=== PATIENT | female | born 1960 | race Caucasian/White ===

== ENCOUNTER 2019-03-13 15:24 | Inpatient (IN) | payer OTHER ==
[2019-03-13 17:05] VITALS: BMI 32.5
--- NOTE | 2019-03-13 17:59 | HP ---
CIWA Score Nausea/Vomitin-No Nausea/No Vomiting Muscle Tremors: 3 Anxiety: 2 Agitation: 2 Paroxysmal Sweats: 2 Orientation: 1-Uncertain about Date Tacttile Disturbances: 0-None Auditory Disturbances: 0-None Visual Disturbances: 0-None Headache: 2-Mild CIWA-Ar Total Score: 12 - Admission Criteria OASAS Guidelines: Admission for Medically Managed Detox: Requires at least one of the followin. CIWA greater than 12 2. Seizures within the past 24 hours 3. Delirium tremens within the past 24 hours 4. Hallucinations within the past 24 hours 5. Acute intervention needed for co occurring medical disorder 6. Acute intervention needed for co occurring psychiatric disorder 7. Severe withdrawal that cannot be handled at a lower level of care (continued vomiting, continued diarrhea, abnormal vital signs) requiring intravenous medication and/or fluids 8. Admission ROS [facility] Chief Complaint: alcohol detox 58 yo with fibromyalgia, hypothyroidism, s/p R knee surgery with persistent R knee pain, taking advil and with depression- taking prozac and wellbutrin. [place] [facility] [place] states has been drinking for the last 5 years due to overwhelm stress- bipolar son and with ALS. Had been not using for about 25 years- was going to AA meetings. alcohol 1 pint of vodka and 2 beers, no h/o seizures, no DT's denies illcit drug use, DUR- klonopin 0.5mg TID 03/01/19 #90- pt states not taking RADHA-0.059 UTox- neg Allergies/Adverse Reactions: Allergies Allergy/AdvReac Type Severity Reaction Status Date / Time No Known Allergies Allergy Verified 03/13/19 16:55 - Ebola screening Have you traveled outside of the country in the last 21 days: No Have you had contact with anyone from an Ebola affected area: No - Review of Systems Constitutional: No Symptoms Reported EENT: reports: No Symptoms Reported Respiratory: reports: No Symptoms reported Cardiac: reports: No Symptoms Reported Musculoskeletal: reports: Joint Pain, Other (R knee) Integumentary: reports: No Symptoms Reported Neuro: reports: No Symptoms reported Endocrine: reports: No Symptoms Reported Hematology: reports: No Symptoms Reported Psychiatric: reports: No Sypmtoms Reported Other Systems: Reviewed and Negative Patient History - Patient Medical History Hx Anemia: No Hx Asthma: No Hx Chronic Obstructive Pulmonary Disease (COPD): No Hx Cardiac Disorders: No Hx Hypertension: No Hx Hypercholesterolemia: No HX Cerebrovascular Accident: No Hx Seizures: No Hx Diabetes: No Hx Gastrointestinal Disorders: No Hx Liver Disease: No Hx Genitourinary Disorders: No Hx Sexually Transmitted Disorders: No Hx Renal Disease (ESRD): No Hx Thyroid Disease: Yes (HYPOTHYROIDISM--ON SYNTHROID 112 MCG DAILY) Hx Human Immunodeficiency Virus (HIV): No (NEGATIVE HX) Hx Hepatitis C: Yes (TREATED ) Hx Depression: Yes Hx Suicide Attempt: No (DENIES) Hx Schizophrenia: No - Patient Surgical History Past Surgical History: Yes Other Surgical History: torn meniscus with surgery- R knee - PPD History Date: 02/19/14 - Reproductive History Last Menstrual Period: 02/23/09 - Smoking Cessation Smoking history: Current every day smoker Have you smoked in the past 12 months: Yes Aproximately how many cigarettes per day: 20 Hx Chewing Tobacco Use: No Initiated information on smoking cessation: Yes 'Breaking Loose' booklet given: 03/13/19 - Substance & Tx. History Substance Use Type: Alcohol - Substances abused Alcohol Substance route: Oral Frequency: Daily Amount used: 1 pint of vodka, 2-3 cans of beer Age of first use: 50 Date of last use: 03/13/19 Family Disease History - Family Disease History Family Disease History: Other: Mother (HTN) Admission Physical Exam BHS - Vital Signs Vital Signs: Vital Signs - 24 hr 03/13/19 03/13/19 16:59 17:20 Temperature 98.5 F 98.5 F Pulse Rate 89 89 Respiratory 20 20 Rate Blood Pressure 112/67 112/67 - Physical General Appearance: Yes: Within Normal Limits, No Apparent Distress HEENTM: Yes: Within Normal Limits Respiratory: Yes: Within Normal Limits Neck: Yes: Within Normal Limits Cardiology: Yes: Within Normal Limits, Regular Rhythm, Regular Rate Abdominal: Yes: Within Normal Limits Musculoskeletal: Yes: Within Normal Limits Extremities: Yes: Within Normal Limits Neurological: Yes: Within Normal Limits, mining helper II-XII NML intact, Fully Oriented, Alert, Motor Strength 5/5, Normal Mood/Affect Integumentary: Yes: Within Normal Limits, Normal Color Lymphatic: Yes: Within Normal Limits - Diagnostic (1) Alcohol use disorder Current Visit: Yes Status: Acute (2) H/O fibromyalgia Current Visit: No Status: Acute (3) Hypothyroidism Current Visit: No Status: Acute (4) Major depressive disorder, recurrent, moderate Current Visit: No Status: Acute Breathalyzer - Breathalyzer Breathalyzer: 0.059 Urine Drug Screen - Test Device Lot number: [id number] Expiration date: 11/08/20 - Control Is test valid?: Yes - Results Drug screen NEGATIVE: Yes Inpatient Rehab Admission - Rehab Decision to Admit Inpatient rehab admission?: No
[2019-03-13] MEDS ORDERED: MAGNESIUM HYDROX 2400MG/30ML ORAL SUSPENSION 30 ML CUP PO PRN (18:06)
[2019-03-13] MEDS ORDERED: METHOCARBAMOL 500 MG TABLET PO PRN (18:06)
[2019-03-13] MEDS ORDERED: ACETAMINOPHEN 325 MG TABLET (FP) PO PRN ×2 (18:06)
[2019-03-13] MEDS ORDERED: MAG HYDROX/AL HYDROX/SIMETH 30 ML UNIT-DOSE CUP PO PRN (18:06)
[2019-03-13] MEDS ORDERED: hydrOXYzine PAMOATE 25 MG CAPSULE (FP) PO PRN (18:06)
[2019-03-13] MEDS ORDERED: MENTHOL/PHENOL 1 EACH UD MM PRN (18:06)
[2019-03-13] MEDS ORDERED: NICOTINE 14 MG/24 HOURS TOPICAL PATCH TD PRN (18:06)
[2019-03-13] MEDS ORDERED: MAGNESIUM CITRATE 300 ML BOTTLE PO PRN (18:06)
[2019-03-13] MEDS ORDERED: BISMUTH SUBSALICYLATE 524 MG/30 ML UD PO PRN (18:06)
[2019-03-13] MEDS ORDERED: chlordiazePOXIDE HCL 25 MG CAPSULE PO ONE (18:09)
[2019-03-13] MEDS: THIAMINE HCL 100 MG TABLET (FP) PO SCH (21:18)
[2019-03-13] MEDS: chlordiazePOXIDE HCL 25 MG CAPSULE PO SCH (21:18)
[2019-03-13] MEDS: IBUPROFEN 400 MG TABLET (FP) PO PRN (22:39)
[2019-03-13] MEDS: chlordiazePOXIDE HCL 10 MG CAPSULE PO PRN (22:40)
[2019-03-14] MEDS: chlordiazePOXIDE HCL 25 MG CAPSULE PO SCH ×3 (06:33→21:50)
[2019-03-14] MEDS: FLUoxetine HCL 20 MG CAPSULE (FP) PO SCH (10:26)
[2019-03-14] MEDS: LEVOTHYROXINE NA 112 MCG TABLET (FP) PO SCH (10:26)
[2019-03-14] MEDS: PRENATAL VITAMINS W/ FOLIC ACID TABLET (FP) PO SCH (10:26)
--- NOTE | 2019-03-14 13:09 | PN ---
S CIWA - CIWA Score Nausea/Vomitin-No Nausea/No Vomiting Muscle Tremors: 3 Anxiety: 2 Agitation: 2 Paroxysmal Sweats: 1-Minimal Palms Moist Orientation: 0-Oriented Tacttile Disturbances: 0-None Auditory Disturbances: 0-None Visual Disturbances: 0-None Headache: 1-Very Mild CIWA-Ar Total Score: 9 BHS Progress Note (SOAP) Subjective: doing well with librium detox regimen less tremor sleep better at night social with peers in day room Objective: 03/14/19 13:08 Vital Signs Temperature 97.0 F L 03/14/19 09:50 Pulse Rate 85 03/14/19 09:50 Respiratory Rate 18 03/14/19 09:50 Blood Pressure 108/67 03/14/19 09:50 O2 Sat by Pulse Oximetry (%) 03/14/19 13:08 lab pending Assessment: 03/14/19 13:08 alcohol withdrawal sx Plan: continue alcohol detox
[2019-03-14 13:16] LABS: HEMATOCRIT 40.6 % (32.4-45.2); HEMOGLOBIN 13.7 GM/dL (10.7-15.3); MCH 32.8 pg (25.7-33.7); MCHC 33.7 g/dl (32.0-36.0); MEAN CELL VOLUME 97.4 fl (80-96); MEAN PLT VOLUME 8.6 fl (7.5-11.1); RBC 4.17 M/mm3 (3.60-5.2); RDW 15.3 % (11.6-15.6); WHITE BLOOD COUNT 5.3 K/mm3 (4.0-10.0)
[2019-03-14 13:26] LABS: ALBUMIN 3.5 g/dl (3.4-5.0); BILIRUBIN,TOTAL 1.1 mg/dL (0.2-1); BLOOD UREA NITROGEN 16.1 mg/dL (7-18); CALCIUM 8.8 mg/dL (8.5-10.1); CREATININE 0.8 mg/dL (0.55-1.3); POTASSIUM 3.9 mmol/L (3.5-5.1); TOT PROT 6.4 g/dl (6.4-8.2)
[2019-03-14 14:13] LABS: PLATELET COUNT 180 K/MM3 (134-434)
[2019-03-14] MEDS: IBUPROFEN 400 MG TABLET (FP) PO PRN (18:59)
[2019-03-14] MEDS: THIAMINE HCL 100 MG TABLET (FP) PO SCH (21:50)
[2019-03-14] MEDS: MELATONIN 5 MG TABLETS PO PRN (21:51)
[2019-03-15] MEDS: chlordiazePOXIDE 5 MG CAPSULE PO SCH ×2 (05:45→12:39)
[2019-03-15] MEDS: LEVOTHYROXINE NA 112 MCG TABLET (FP) PO SCH (06:28)
[2019-03-15] MEDS: FLUoxetine HCL 20 MG CAPSULE (FP) PO SCH (09:50)
[2019-03-15] MEDS: PRENATAL VITAMINS W/ FOLIC ACID TABLET (FP) PO SCH (09:51)
[2019-03-15] MEDS: IBUPROFEN 400 MG TABLET (FP) PO PRN (13:18)
[2019-03-15] MEDS: chlordiazePOXIDE HCL 10 MG CAPSULE PO PRN (15:27)
--- NOTE | 2019-03-15 16:57 | PN ---
S CIWA - CIWA Score Nausea/Vomitin (Diarrhea (Mild).) Muscle Tremors: None Anxiety: 2 Agitation: 1-Slight > Activity Paroxysmal Sweats: No Perspiration Orientation: 0-Oriented Tacttile Disturbances: 1-Very Mild Itch/Numbness Auditory Disturbances: 0-None Visual Disturbances: 0-None Headache: 0-None Present CIWA-Ar Total Score: 6 BHS Progress Note (SOAP) Subjective: Diarrhea (Mild). Objective: PATIENT A & O X 3, OBSERVED AMBULATING ON UNIT UNASSISTED. IN NO ACUTE DISTRESS. 03/15/19 16:54 Vital Signs Temperature 97.4 F L 03/15/19 13:42 Pulse Rate 83 03/15/19 13:42 Respiratory Rate 17 03/15/19 13:42 Blood Pressure 110/61 03/15/19 13:42 O2 Sat by Pulse Oximetry (%) Laboratory Tests 03/13/19 03/14/19 03/14/19 17:21 08:00 08:00 WBC 5.3 RBC 4.17 Hgb 13.7 Hct 40.6 MCV 97.4 H MCH 32.8 MCHC 33.7 RDW 15.3 D Plt Count 180 MPV 8.6 Sodium 140 Potassium 3.9 Chloride 104 Carbon Dioxide 31 Anion Gap 6 L BUN 16.1 Creatinine 0.8 Est GFR (CKD-EPI)AfAm 94.19 Est GFR (CKD-EPI)NonAf 81.27 Random Glucose 113 H Calcium 8.8 Total Bilirubin 1.1 H AST 30 ALT 32 Alkaline Phosphatase 73 Total Protein 6.4 Albumin 3.5 POC Urine HCG, Qual Negative RPR Titer 03/14/19 08:00 WBC RBC Hgb Hct MCV MCH MCHC RDW Plt Count MPV Sodium Potassium Chloride Carbon Dioxide Anion Gap BUN Creatinine Est GFR (CKD-EPI)AfAm Est GFR (CKD-EPI)NonAf Random Glucose Calcium Total Bilirubin AST ALT Alkaline Phosphatase Total Protein Albumin POC Urine HCG, Qual RPR Titer Nonreactive LABS NOTED. TB / QFT RESULTS PENDING. 03/15/19 16:55 Assessment: 03/15/19 16:56 WITHDRAWAL SYMPTOMS. Plan: CONTINUE DETOX. INCREASE DAILY PO WATER INTAKE. PRN PEPTO-BISMOL PO FOR DIARRHEA. PATIENT REPORTS THAT SHE IS TOLERATING CURRENT WITHDRAWAL / DETOX SYMPTOMS WELL. AT PATIENT'S REQUEST, CURRENT DETOX MEDICATION REGIMEN (LIBRIUM) MODIFIED SO THAT PATIENT MAY BE DISCHARGED TOMORROW, 03/16/2019.
[2019-03-15] MEDS: chlordiazePOXIDE HCL 10 MG CAPSULE PO SCH ×2 (17:29→22:00)
[2019-03-15] MEDS: THIAMINE HCL 100 MG TABLET (FP) PO SCH (21:59)
[2019-03-16] MEDS ORDERED: chlordiazePOXIDE HCL 10 MG CAPSULE PO PRN
[2019-03-16] MEDS: MELATONIN 5 MG TABLETS PO PRN (00:27)
[2019-03-16] MEDS ORDERED: chlordiazePOXIDE HCL 10 MG CAPSULE PO SCH (05:00)
[2019-03-16] MEDS: LEVOTHYROXINE NA 112 MCG TABLET (FP) PO SCH (06:14)
[2019-03-16 09:45] VITALS: BP 119/72; PULSE 78; TEMP 97
--- NOTE | 2019-03-16 15:43 | DS ---
[facility] Detox Discharge Summary Admission Date: 03/13/19 Discharge Date: 03/16/19 - History Present History: Alcohol Dependence Additional Comments: PATIENT DENIES CURRENT WITHDRAWAL / DETOX SYMPTOMS AND REPORTS THAT SHE FEELS WELL OVERALL AT TIME OF DISCHARGE FROM DETOX UNIT. PATIENT RETURNING HOME AND WILL ATTEND LOCAL MEETINGS FOR AFTERCARE. PATIENT WAS DISCHARGED FROM DETOX UNIT IN STABLE MEDICAL CONDITION. Pertinent Past History: Hypothyroidism, Hep C, Depression, History Of Fibrolmyalgia, History Of Major Depressive Disorder, History Of Surgery To Right Knee With Persistent Lasting Knee Pain. - Physical Exam Results Vital Signs: Vital Signs Temperature 97.0 F L 03/16/19 09:00 Pulse Rate 78 03/16/19 09:00 Respiratory Rate 18 03/16/19 09:00 Blood Pressure 119/72 03/16/19 09:00 O2 Sat by Pulse Oximetry (%) Pertinent Admission Physical Exam Findings: WITHDRAWAL SYMPTOMS. Laboratory Tests 03/13/19 03/14/19 03/14/19 17:21 08:00 08:00 WBC 5.3 RBC 4.17 Hgb 13.7 Hct 40.6 MCV 97.4 H MCH 32.8 MCHC 33.7 RDW 15.3 D Plt Count 180 MPV 8.6 Sodium 140 Potassium 3.9 Chloride 104 Carbon Dioxide 31 Anion Gap 6 L BUN 16.1 Creatinine 0.8 Est GFR (CKD-EPI)AfAm 94.19 Est GFR (CKD-EPI)NonAf 81.27 Random Glucose 113 H Calcium 8.8 Total Bilirubin 1.1 H AST 30 ALT 32 Alkaline Phosphatase 73 Total Protein 6.4 Albumin 3.5 POC Urine HCG, Qual Negative RPR Titer 03/14/19 08:00 WBC RBC Hgb Hct MCV MCH MCHC RDW Plt Count MPV Sodium Potassium Chloride Carbon Dioxide Anion Gap BUN Creatinine Est GFR (CKD-EPI)AfAm Est GFR (CKD-EPI)NonAf Random Glucose Calcium Total Bilirubin AST ALT Alkaline Phosphatase Total Protein Albumin POC Urine HCG, Qual RPR Titer Nonreactive LABS NOTED. - Treatment Hospital Course: Detox Protocol Followed, Detoxed Safely, Responded well, Discharged Condition Good Patient has Accepted a Rehab Referral to: PT. WILL RETURN TO PREVIOUS OUTPATIENT SUPPORT GROUP MEETINGS. - Medication Discharge Medications: Ambulatory Orders Aspirin [ASA -] 81 mg PO DAILY #30 tab.chew 02/21/14 Levothyroxine [Synthroid -] 112 mcg PO DAILY@0700 #30 tablet 02/21/14 Fluoxetine HCl [Prozac -] 20 mg PO DAILY 03/13/19 - Diagnosis (1) Alcohol use disorder Status: Acute (2) H/O fibromyalgia Status: Chronic (3) Hypothyroidism Status: Chronic Qualifiers: Hypothyroidism type: unspecified Qualified Code(s): E03.9 - Hypothyroidism , unspecified (4) Major depressive disorder, recurrent, moderate Status: Chronic - AMA Did Patient Leave Against Medical Advice: No
[2019-03-17] MEDS ORDERED: chlordiazePOXIDE HCL 10 MG CAPSULE PO ONE (05:00)
== END 2019-03-16 09:08 | disposition home or self-care (01) | DRG 897 ==
LOC: YASAS 15:24 → Y3N 18:26
PROVIDERS: ADMIT Surgery; ATTEND Surgery
PROC: HZ2ZZZZ Detoxification Services for Substance Abuse Treatment (ICD-10-PCS; principal; 2019-03-13)
DX: F10.230 Alcohol dependence with withdrawal, uncomplicated (principal); F33.1 Major depressive disorder, recurrent, moderate; E03.9 Hypothyroidism, unspecified; B18.2 Chronic viral hepatitis C; M79.7 Fibromyalgia; M25.561 Pain in right knee; G89.29 Other chronic pain; Z98.890 Other specified postprocedural states
CPT/HCPCS: 36415; 80053; 81025; 85027; 86480; 86593

== ENCOUNTER 2020-03-03 12:45 | Inpatient (IN) | payer OTHER ==
[2020-03-03] MEDS ORDERED: IBUPROFEN 400 MG TABLET (FP) PO PRN (13:39)
[2020-03-03] MEDS ORDERED: MENTHOL/PHENOL 1 EACH UD MM PRN (13:39)
[2020-03-03] MEDS ORDERED: NICOTINE POLACRILEX 2 MG GUM BUC PRN (13:39)
[2020-03-03] MEDS ORDERED: MAGNESIUM HYDROX 2400MG/30ML ORAL SUSPENSION 30 ML CUP PO PRN (13:39)
[2020-03-03] MEDS ORDERED: guaiFENesin 200 MG/10 ML 10 ML UNIT-DOSE CUPS PO PRN (13:39)
[2020-03-03] MEDS ORDERED: MAG HYDROX/AL HYDROX/SIMETH 30 ML UNIT-DOSE CUP PO PRN (13:39)
[2020-03-03] MEDS ORDERED: P-EPHED 60MG/TRIPROLIDI 2.5MG TABLET PO PRN (13:39)
[2020-03-03] MEDS ORDERED: LOPERAMIDE HCL 2 MG CAPSULE PO PRN (13:39)
[2020-03-03] MEDS ORDERED: ACETAMINOPHEN 325 MG TABLET (FP) PO PRN (13:39)
[2020-03-03] MEDS ORDERED: MAGNESIUM CITRATE 300 ML BOTTLE PO PRN (13:39)
[2020-03-03] MEDS ORDERED: BENZOCAINE 20 % GEL TUBE MM PRN (13:40)
--- NOTE | 2020-03-03 13:47 | HP ---
[facility] Rehab Assess/Revision - Admission History Ad[facility]hab [facility] - Findings Detox History & Physical reviewed: Yes Concur with findings: Yes Comments/Additional Findings: P/E;. General: no apparent distress. Neuro: No cognitive deficits. HEENTM:PERRLA, normocephalic, dental caries. MSK: full weight bearing. Resp: no accessory muscle use, unlabored. Inpatient Rehab Admission - Rehab Decision to Admit Inpatient rehab admission?: Yes - Initial Determination Are CD services needed?: Yes Free of communicable disease: Yes Not in need of hospitalization: Yes - Rehab Admission Criteria Previous failed treatment: Yes Poor recovery environment: Yes Comorbidities: Yes Lacks judgement: Yes Patient is meeting Inpatient Rehab admission criteria:: Yes
--- NOTE | 2020-03-03 14:27 | CONSULT ---
[facility] Psychiatric Consult - Data Date of interview: 03/03/20 Admission source: 3N Identifying data: Ms Moran is a 59 years old female, mother of a 25 years old son, unemployed receiving SSD, domiciled seeking detox treatment for alcohol Substance Abuse History: Reports history of alcohol use. Refer to addiction conselor's summary for further information Medical History: Significant for history of GERD, dyslipidemia, fibromyalgia, hypothyroidism, history of treatment for hepatits C and arthroscopic surgery for torn meniscus right knee. Smokes cigarettes 1 ppd Psychiatric History: Patient previously seen by commercial insurance underwriter recently on 02/28/20 while in detox. Medications(Wellbutribn XL 450 mg/day & Prozac 20 mg/day) were continued. Continue same medications
[2020-03-03] MEDS: hydrOXYzine PAMOATE 25 MG CAPSULE (FP) PO PRN (21:33)
[2020-03-03] MEDS: MELATONIN 5 MG TABLETS PO SCH (21:33)
[2020-03-03] MEDS: THIAMINE HCL 100 MG TABLET (FP) PO SCH (21:33)
[2020-03-04] MEDS: LEVOTHYROXINE NA 100 MCG TABLET (FP) PO SCH (06:35)
[2020-03-04] MEDS: ASPIRIN 81 MG CHEWABLE TABLETS PO SCH (10:22)
[2020-03-04] MEDS: FLUoxetine HCL 20 MG CAPSULE PO SCH (10:22)
[2020-03-04] MEDS: hydrOXYzine PAMOATE 25 MG CAPSULE (FP) PO PRN ×2 (10:23→21:47)
[2020-03-04] MEDS: LIDOCAINE 5% TOPICAL PATCH TP SCH (10:23)
[2020-03-04] MEDS: ATORVASTATIN CA 10 MG TABLET (FP) PO SCH (10:23)
[2020-03-04] MEDS: NICOTINE 21 MG/24 HOURS TOPICAL PATCH TD SCH (10:24)
[2020-03-04] MEDS: PRENATAL VITAMINS W/ FOLIC ACID TABLET (FP) PO SCH (10:24)
[2020-03-04] MEDS: MELATONIN 5 MG TABLETS PO SCH (21:47)
[2020-03-04] MEDS: THIAMINE HCL 100 MG TABLET (FP) PO SCH (21:47)
[2020-03-04] MEDS: LIDOCAINE PATCH REMOVAL MC SCH (21:47)
[2020-03-05] MEDS: LEVOTHYROXINE NA 100 MCG TABLET (FP) PO SCH (06:39)
[2020-03-05] MEDS: PRENATAL VITAMINS W/ FOLIC ACID TABLET (FP) PO SCH (10:10)
[2020-03-05] MEDS: FLUoxetine HCL 20 MG CAPSULE PO SCH (10:10)
[2020-03-05] MEDS: LIDOCAINE 5% TOPICAL PATCH TP SCH (10:10)
[2020-03-05] MEDS: ASPIRIN 81 MG CHEWABLE TABLETS PO SCH (10:10)
[2020-03-05] MEDS: ATORVASTATIN CA 10 MG TABLET (FP) PO SCH (10:11)
[2020-03-05] MEDS ORDERED: PT OWN MED DRAWER 7, Y5N ONE (10:15)
[2020-03-05] MEDS: NICOTINE 21 MG/24 HOURS TOPICAL PATCH TD SCH (10:21)
[2020-03-05] MEDS: THIAMINE HCL 100 MG TABLET (FP) PO SCH (21:27)
[2020-03-05] MEDS: hydrOXYzine PAMOATE 25 MG CAPSULE (FP) PO PRN (21:27)
[2020-03-05] MEDS: MELATONIN 5 MG TABLETS PO SCH (21:27)
[2020-03-05] MEDS: LIDOCAINE PATCH REMOVAL MC SCH (21:28)
[2020-03-06] MEDS: LEVOTHYROXINE NA 100 MCG TABLET (FP) PO SCH (06:51)
[2020-03-06] MEDS: FLUoxetine HCL 20 MG CAPSULE PO SCH (10:28)
[2020-03-06] MEDS: ASPIRIN 81 MG CHEWABLE TABLETS PO SCH (10:28)
[2020-03-06] MEDS: ATORVASTATIN CA 10 MG TABLET (FP) PO SCH (10:28)
[2020-03-06] MEDS: PRENATAL VITAMINS W/ FOLIC ACID TABLET (FP) PO SCH (10:28)
[2020-03-06] MEDS: NICOTINE 21 MG/24 HOURS TOPICAL PATCH TD SCH (10:29)
[2020-03-06] MEDS: LIDOCAINE 5% TOPICAL PATCH TP SCH (12:58)
[2020-03-06] MEDS: hydrOXYzine PAMOATE 25 MG CAPSULE (FP) PO PRN (21:36)
[2020-03-06] MEDS: THIAMINE HCL 100 MG TABLET (FP) PO SCH (21:36)
[2020-03-06] MEDS: LIDOCAINE PATCH REMOVAL MC SCH (21:36)
[2020-03-06] MEDS: MELATONIN 5 MG TABLETS PO SCH (21:36)
[2020-03-07] MEDS: LEVOTHYROXINE NA 100 MCG TABLET (FP) PO SCH (06:26)
[2020-03-07] MEDS: LIDOCAINE 5% TOPICAL PATCH TP SCH (10:10)
[2020-03-07] MEDS: ASPIRIN 81 MG CHEWABLE TABLETS PO SCH (10:11)
[2020-03-07] MEDS: FLUoxetine HCL 20 MG CAPSULE PO SCH (10:11)
[2020-03-07] MEDS: ATORVASTATIN CA 10 MG TABLET (FP) PO SCH (10:11)
[2020-03-07] MEDS: NICOTINE 21 MG/24 HOURS TOPICAL PATCH TD SCH (10:11)
[2020-03-07] MEDS: PRENATAL VITAMINS W/ FOLIC ACID TABLET (FP) PO SCH (10:11)
[2020-03-07] MEDS: MELATONIN 5 MG TABLETS PO SCH (21:22)
[2020-03-07] MEDS: THIAMINE HCL 100 MG TABLET (FP) PO SCH (21:22)
[2020-03-07] MEDS: hydrOXYzine PAMOATE 25 MG CAPSULE (FP) PO PRN (21:22)
[2020-03-07] MEDS: LIDOCAINE PATCH REMOVAL MC SCH (21:23)
[2020-03-07] MEDS ORDERED: METHYL SALICYLATE/MENTHOL OINT 30 GM TUBE TP PRN (22:00)
[2020-03-08] MEDS: FLUoxetine HCL 20 MG CAPSULE PO SCH (09:39)
[2020-03-08] MEDS: ASPIRIN 81 MG CHEWABLE TABLETS PO SCH (09:39)
[2020-03-08] MEDS: PRENATAL VITAMINS W/ FOLIC ACID TABLET (FP) PO SCH (09:39)
[2020-03-08] MEDS: ATORVASTATIN CA 10 MG TABLET (FP) PO SCH (09:39)
[2020-03-08] MEDS: LIDOCAINE 5% TOPICAL PATCH TP SCH (09:39)
[2020-03-08] MEDS: LEVOTHYROXINE NA 100 MCG TABLET (FP) PO SCH (09:40)
[2020-03-08] MEDS: NICOTINE 21 MG/24 HOURS TOPICAL PATCH TD SCH (09:40)
[2020-03-08] MEDS: MELATONIN 5 MG TABLETS PO SCH (21:46)
[2020-03-08] MEDS: hydrOXYzine PAMOATE 25 MG CAPSULE (FP) PO PRN (21:46)
[2020-03-08] MEDS: THIAMINE HCL 100 MG TABLET (FP) PO SCH (21:46)
[2020-03-08] MEDS: LIDOCAINE PATCH REMOVAL MC SCH (21:46)
[2020-03-09] MEDS: ASPIRIN 81 MG CHEWABLE TABLETS PO SCH (11:02)
[2020-03-09] MEDS: FLUoxetine HCL 20 MG CAPSULE PO SCH (11:02)
[2020-03-09] MEDS: NICOTINE 21 MG/24 HOURS TOPICAL PATCH TD SCH (11:02)
[2020-03-09] MEDS: LEVOTHYROXINE NA 100 MCG TABLET (FP) PO SCH (11:03)
[2020-03-09] MEDS: PRENATAL VITAMINS W/ FOLIC ACID TABLET (FP) PO SCH (11:03)
[2020-03-09] MEDS: ATORVASTATIN CA 10 MG TABLET (FP) PO SCH (11:03)
[2020-03-09] MEDS ORDERED: PT OWN MED DRAWER 7, Y5N ONE (11:07)
[2020-03-09] MEDS: LIDOCAINE 5% TOPICAL PATCH TP SCH (11:08)
--- NOTE | 2020-03-09 13:49 | PN ---
[facility] Progress Note Note: Patient c/o right knee discomfort, radiating down leg. She states mild relief with lidocaine patch and requested 2 patches to help with pain relief. Vital Signs Temperature 97.3 F L 03/09/20 07:06 Pulse Rate 79 03/09/20 07:06 Respiratory Rate 18 03/09/20 07:06 Blood Pressure 116/60 03/09/20 07:06 O2 Sat by Pulse Oximetry (%) 97 03/09/20 07:06 PE alert and oriented x 3 skin warm and dry ext full rom, amb ad corey no visible tremors, swelling A/P: right knee discomfort-chronic due to old torn meniscus will increase lidocaine patch to 2 HS monitor clinically
[2020-03-09] MEDS ORDERED: HYDROCORTISONE 1% TOPICAL CREAM 30 GM TUBE TP PRN (15:44)
[2020-03-09] MEDS: LIDOCAINE PATCH REMOVAL MC SCH (21:34)
[2020-03-09] MEDS: MELATONIN 5 MG TABLETS PO SCH (21:34)
[2020-03-09] MEDS: THIAMINE HCL 100 MG TABLET (FP) PO SCH (21:35)
[2020-03-09] MEDS: hydrOXYzine PAMOATE 25 MG CAPSULE (FP) PO PRN (21:36)
[2020-03-10] MEDS: ATORVASTATIN CA 10 MG TABLET (FP) PO SCH (10:19)
[2020-03-10] MEDS: ASPIRIN 81 MG CHEWABLE TABLETS PO SCH (10:19)
[2020-03-10] MEDS: LIDOCAINE 5% TOPICAL PATCH TP SCH (10:19)
[2020-03-10] MEDS: NICOTINE 21 MG/24 HOURS TOPICAL PATCH TD SCH (10:19)
[2020-03-10] MEDS: FLUoxetine HCL 20 MG CAPSULE PO SCH (10:19)
[2020-03-10] MEDS: PRENATAL VITAMINS W/ FOLIC ACID TABLET (FP) PO SCH (10:19)
[2020-03-10] MEDS: LEVOTHYROXINE NA 100 MCG TABLET (FP) PO SCH (10:20)
[2020-03-10] MEDS ORDERED: PT OWN MED DRAWER 7, Y5N ONE (10:21)
[2020-03-10] MEDS: HYDROCORTISONE 1% TOPICAL CREAM 30 GM TUBE TP PRN (16:59)
[2020-03-10] MEDS: THIAMINE HCL 100 MG TABLET (FP) PO SCH (21:33)
[2020-03-10] MEDS: hydrOXYzine PAMOATE 25 MG CAPSULE (FP) PO PRN (21:33)
[2020-03-10] MEDS: MELATONIN 5 MG TABLETS PO SCH (21:33)
[2020-03-10] MEDS: LIDOCAINE PATCH REMOVAL MC SCH (21:33)
[2020-03-11] MEDS: FLUoxetine HCL 20 MG CAPSULE PO SCH (10:48)
[2020-03-11] MEDS: LEVOTHYROXINE NA 100 MCG TABLET (FP) PO SCH (10:48)
[2020-03-11] MEDS: ATORVASTATIN CA 10 MG TABLET (FP) PO SCH (10:48)
[2020-03-11] MEDS: ASPIRIN 81 MG CHEWABLE TABLETS PO SCH (10:48)
[2020-03-11] MEDS: LIDOCAINE 5% TOPICAL PATCH TP SCH (10:48)
[2020-03-11] MEDS: PRENATAL VITAMINS W/ FOLIC ACID TABLET (FP) PO SCH (10:48)
[2020-03-11] MEDS: NICOTINE 21 MG/24 HOURS TOPICAL PATCH TD SCH (10:48)
[2020-03-11] MEDS: HYDROCORTISONE 1% TOPICAL CREAM 30 GM TUBE TP PRN (13:39)
[2020-03-11] MEDS ORDERED: PT OWN MED DRAWER 7, Y5N ONE (19:02)
[2020-03-11] MEDS: hydrOXYzine PAMOATE 25 MG CAPSULE (FP) PO PRN (21:31)
[2020-03-11] MEDS: MELATONIN 5 MG TABLETS PO SCH (21:31)
[2020-03-11] MEDS: THIAMINE HCL 100 MG TABLET (FP) PO SCH (21:31)
[2020-03-11] MEDS: LIDOCAINE PATCH REMOVAL MC SCH (21:32)
[2020-03-12 07:04] VITALS: TEMP 97.3
[2020-03-12] MEDS: PRENATAL VITAMINS W/ FOLIC ACID TABLET (FP) PO SCH (10:00)
[2020-03-12] MEDS: LIDOCAINE 5% TOPICAL PATCH TP SCH (10:01)
[2020-03-12] MEDS: ATORVASTATIN CA 10 MG TABLET (FP) PO SCH (10:01)
[2020-03-12] MEDS: FLUoxetine HCL 20 MG CAPSULE PO SCH (10:01)
[2020-03-12] MEDS: ASPIRIN 81 MG CHEWABLE TABLETS PO SCH (10:01)
[2020-03-12] MEDS: hydrOXYzine PAMOATE 25 MG CAPSULE (FP) PO PRN ×2 (10:01→21:32)
[2020-03-12] MEDS: LEVOTHYROXINE NA 100 MCG TABLET (FP) PO SCH (10:02)
[2020-03-12] MEDS: HYDROCORTISONE 1% TOPICAL CREAM 30 GM TUBE TP PRN (10:02)
[2020-03-12] MEDS: NICOTINE 21 MG/24 HOURS TOPICAL PATCH TD SCH (10:02)
[2020-03-12] MEDS: LIDOCAINE PATCH REMOVAL MC SCH (21:32)
[2020-03-12] MEDS: MELATONIN 5 MG TABLETS PO SCH (21:32)
[2020-03-12] MEDS: THIAMINE HCL 100 MG TABLET (FP) PO SCH (21:32)
--- NOTE | 2020-03-13 07:16 | PN ---
S Progress Note Note: Patient is scheduled for discharge today. Scripts for 30 days supply of medications(Prozac 20 mg/day, Wellbutrin XL 450 mg/day) are electronically transmitted to [facility] [address] [place] [address]
[2020-03-13 07:19] VITALS: BP 108/69; PULSE 66
[2020-03-13] MEDS ORDERED: PT OWN MED DRAWER 7, Y5N ONE (08:38)
--- NOTE | 2020-03-13 08:53 | DS ---
[facility] Rehab Discharge Summary - [facility] Rehab Discharge Summary Admission Date: 03/03/20 Discharge Date: 03/13/20 - History Present History: Alcohol dependence, Sedative dependence Pertinent Past History: GERD HLD Hypothyroidism Fibromyalgia MDD - Discharge Physical Exam Vital Signs: Vital Signs Temperature 97.3 F L 03/13/20 06:12 Pulse Rate 66 03/13/20 06:12 Respiratory Rate 16 03/13/20 06:12 Blood Pressure 108/69 03/13/20 06:12 O2 Sat by Pulse Oximetry (%) 96 03/13/20 06:12 Alert o x 3 nad oob ambulating with steady gait cardiac:s1 s2,rrr lungs:ctab abdomen:soft,+bs,nt,nd extremities:no edema,skin intact,mild varicosty of veins-lower extremities. - Treatment Discharge Condition: Discharge condition good Hospital Course: CD aftercare referral accepted Rehabilitated safely Responded well - Medication Discharge Medications: Ambulatory Orders Aspirin [ASA -] 81 mg PO DAILY #30 tab.chew 02/21/14 Atorvastatin Calcium [Lipitor] 10 mg PO DAILY 02/27/20 Benzocaine Oral Gel [Anbesol -] 1 applic MM Q2H PRN 02/27/20 Bupropion HCl [Wellbutrin -] 450 mg PO DAILY 02/27/20 Clonazepam [Klonopin] 1 mg PO TID PRN 02/27/20 Levothyroxine [Synthroid -] 100 mcg PO DAILY@0700 02/27/20 Bupropion HCl [Wellbutrin Xl -] 450 mg PO DAILY #90 tab.sr.24h 03/13/20 Fluoxetine HCl [Prozac -] 20 mg PO DAILY #30 cap 03/13/20 - Medication-Assisted Treatment (MAT) Medication-Assisted Treatment (MAT): No - Discharge Instructions Diet, activity, other medical instructions: Diet:EMILIE Activity: OOB ad corey Other medical instructions:Follow up with PCP Dr. Vital @ [facility]. Follow up with CD aftercare at [facility] or [facility] as recommended. - Diagnosis (1) Alcohol use disorder Status: Chronic (2) GERD (gastroesophageal reflux disease) Status: Chronic Qualifiers: Esophagitis presence: esophagitis presence not specified Qualified Code(s): K21.9 - Gastro-esophageal reflux disease without esophagitis (3) Hyperlipidemia Status: Chronic Qualifiers: Hyperlipidemia type: unspecified Qualified Code(s): E78.5 - Hyperlipidemia, unspecified (4) Sedative dependence with current use Status: Chronic (5) H/O fibromyalgia Status: Chronic (6) Hypothyroidism Status: Chronic Qualifiers: Hypothyroidism type: unspecified Qualified Code(s): E03.9 - Hypothyroidism, unspecified (7) Nicotine dependence Status: Chronic Qualifiers: Nicotine product type: cigarettes Substance use status: uncomplicated Qualified Code(s): F17.210 - Nicotine dependence, cigarettes, uncomplicated - Follow-up Referral Minutes to complete discharge: 30 - AMA Did Patient Leave Against Medical Advice: No Additional Comments: Pt reports she has all her medications at home and going to order picker/assembler her refills from her pharmacy after she gets home.
[2020-03-13] MEDS: LEVOTHYROXINE NA 100 MCG TABLET (FP) PO SCH (09:15)
[2020-03-13] MEDS: FLUoxetine HCL 20 MG CAPSULE PO SCH (09:16)
[2020-03-13] MEDS: ATORVASTATIN CA 10 MG TABLET (FP) PO SCH (09:16)
[2020-03-13] MEDS: ASPIRIN 81 MG CHEWABLE TABLETS PO SCH (09:16)
[2020-03-13] MEDS: NICOTINE 21 MG/24 HOURS TOPICAL PATCH TD SCH (09:17)
[2020-03-13] MEDS: PRENATAL VITAMINS W/ FOLIC ACID TABLET (FP) PO SCH (09:17)
[2020-03-13] MEDS: LIDOCAINE 5% TOPICAL PATCH TP SCH (09:18)
== END 2020-03-13 10:09 | disposition home or self-care (01) | DRG 895 ==
LOC: YASAS 12:45 → Y3W 12:49
PROVIDERS: ADMIT Allergy & Immunology; ATTEND Allergy & Immunology
PROC: HZ42ZZZ Group Counseling for Substance Abuse Treatment, Cognitive-Behavioral (ICD-10-PCS; principal; 2020-03-03)
DX: F10.20 Alcohol dependence, uncomplicated (principal); F13.20 Sedative, hypnotic or anxiolytic dependence, uncomplicated; F17.210 Nicotine dependence, cigarettes, uncomplicated; F32.9 Major depressive disorder, single episode, unspecified; E06.9 Thyroiditis, unspecified; K21.9 Gastro-esophageal reflux disease without esophagitis; M79.7 Fibromyalgia; E78.5 Hyperlipidemia, unspecified; M25.561 Pain in right knee; Z88.1 Allergy status to other antibiotic agents

== ENCOUNTER 2020-06-15 09:01 | Inpatient (IN) | payer OTHER ==
[2020-06-15 09:23] VITALS: BMI 27.8
--- NOTE | 2020-06-15 09:49 | HP ---
CIWA Score - Admission Criteria OASAS Guidelines: Admission for Medically Managed Detox: Requires at least one of the followin. CIWA greater than 12 2. Seizures within the past 24 hours 3. Delirium tremens within the past 24 hours 4. Hallucinations within the past 24 hours 5. Acute intervention needed for co occurring medical disorder 6. Acute intervention needed for co occurring psychiatric disorder 7. Severe withdrawal that cannot be handled at a lower level of care (continued vomiting, continued diarrhea, abnormal vital signs) requiring intravenous medication and/or fluids 8. Admitting History and Physical - Admission Chief Complaint: Ms. Moran is a 60 yo woman who presents to [facility] requesting detox admission for alcohol use. History of Present Illness: Ms. Moran is a 60 yo woman who presents to [facility] requesting detox admission for alcohol use. She was last here in January 2020, completed detox and then relapsed 2 months ago. PMH: Fibromyalgia, hypothyroidism, Hep C tx in 1994, hx UTIs PSH: right knee meniscus tear Psych: depression, anxiety SOC: rents in [place] Legal: none Substance use hx Alchol: one pint Vodka daily, last drink today, first drink age 53 yo. No hx of seizure. Has had blackouts. 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 Nicotine: one pack per day since age 15y History Source: Patient Limitations to Obtaining History: No Limitations - Past Medical History Gastrointestinal: Yes: GERD ...LMP: 02/23/09 Psych: Yes: Anxiety, Depression Rheumatology: Yes: Fibromyalgia Endocrine: Yes: Hypothyroidism - Past Surgical History Past Surgical History: Yes: Arthrosocopy - Smoking History Smoking history: Current every day smoker Have you smoked in the past 12 months: Yes Aproximately how many cigarettes per day: 20 - Alcohol/Substance Use Hx Alcohol Use: No (DENIES) History of Substance Use: reports: Tranquilizers - Social History ADL: Independent Occupation: [employer] History of Recent Travel: No Admission ROS S - HPI Allergies/Adverse Reactions: Allergies Allergy/AdvReac Type Severity Reaction Status Date / Time No Known Food Allergies Allergy Verified 06/15/20 09:28 antibiotic begins with Allergy Intermediate Hives Uncoded 06/15/20 09:28 letter C Exam Limitations: No Limitations - Ebola screening Have you traveled outside of the country in the last 21 days: No Have you been sick,other than usual withdrawal symptoms: No Do you have a fever: No - Review of Systems Constitutional: No Symptoms Reported EENT: reports: Blurred Vision (glasses for distance, she has with her today) Respiratory: reports: No Symptoms reported Cardiac: reports: No Symptoms Reported GI: reports: Vomiting (4 days ago) : reports: Other (hx UTIs, last was 3 mos ago) Musculoskeletal: reports: Joint Pain (right knee pain uses a patch) Integumentary: reports: No Symptoms Reported Neuro: reports: No Symptoms reported Endocrine: reports: No Symptoms Reported Hematology: reports: No Symptoms Reported Psychiatric: reports: Anxious, Depressed (No SI) Patient History - Patient Medical History Hx Anemia: No Hx Asthma: No Hx Chronic Obstructive Pulmonary Disease (COPD): No Hx Cardiac Disorders: No Hx Hypertension: No Hx Hypercholesterolemia: No HX Cerebrovascular Accident: No Hx Seizures: No Hx Diabetes: No Hx Gastrointestinal Disorders: No Hx Liver Disease: No Hx Genitourinary Disorders: No Hx Sexually Transmitted Disorders: No Hx Renal Disease (ESRD): No Hx Thyroid Disease: Yes (HYPOTHYROIDISM--ON SYNTHROID 112 MCG DAILY) Hx Human Immunodeficiency Virus (HIV): No (NEGATIVE HX) Hx Hepatitis C: Yes (TREATED ) Hx Depression: Yes Hx Suicide Attempt: No (DENIES) Hx Schizophrenia: No - Patient Surgical History Past Surgical History: Yes Hx Neurologic Surgery: No Hx Cataract Extraction: No Hx Cardiac Surgery: No Hx Lung Surgery: No Hx Breast Surgery: No Hx Breast Biopsy: No Hx Abdominal Surgery: No Hx Appendectomy: No Hx Cholecystectomy: No Hx Genitourinary Surgery: No Hx Section: No Hx Orthopedic Surgery: Yes Other Surgical History: torn meniscus with surgery- R knee Anesthesia Reaction: No - PPD History Date: 03/05/20 Results: Negative - Reproductive History Last Menstrual Period: 02/23/09 - Smoking Cessation Smoking history: Current every day smoker Have you smoked in the past 12 months: Yes Aproximately how many cigarettes per day: 20 Hx Chewing Tobacco Use: No Initiated information on smoking cessation: Yes 'Breaking Loose' booklet given: 06/15/20 Admission Physical Exam BHS - Vital Signs Vital Signs: Vital Signs - 24 hr 06/15/20 09:20 Temperature 96.2 F L Pulse Rate 88 Respiratory 16 Rate Blood Pressure 143/83 - Physical General Appearance: Yes: No Apparent Distress, Nourished HEENTM: Yes: EOMI, Hearing grossly Normal, Normocephalic, Normal Voice Respiratory: Yes: Lungs Clear, No Respiratory Distress, No Accessory Muscle Use Neck: Yes: Within Normal Limits, Supple Breast: Yes: Breast Exam Deferred Cardiology: Yes: Regular Rhythm, Regular Rate Abdominal: Yes: Normal Bowel Sounds, Non Tender, Flat, Soft Genitourinary: Yes: Other (deferred) Back: Yes: Normal Inspection Musculoskeletal: Yes: Gait Steady Extremities: Yes: Normal Inspection, Non-Tender Neurological: Yes: Alert, Normal Response Integumentary: Yes: Within Normal Limits, Normal Color, Dry, Warm - Diagnostic (1) Depression Current Visit: Yes Status: Chronic (2) Alcohol dependence with withdrawal Current Visit: Yes Status: Acute (3) H/O fibromyalgia Current Visit: Yes Status: Chronic (4) Hypothyroidism Current Visit: Yes Status: Chronic Qualifiers: Hypothyroidism type: unspecified Qualified Code(s): E03.9 - Hypothyroidism, unspecified (5) Nicotine dependence Current Visit: Yes Status: Acute Qualifiers: Nicotine product type: cigarettes Substance use status: uncomplicated Qualified Code(s): F17.210 - Nicotine dependence, cigarettes, uncomplicated Cleared for Admission S - Detox or Rehab [facility] Level of Care: Medically Managed Detox Regimen/Protocol: Librium Breathalyzer - Breathalyzer Breathalyzer: 0 Urine Drug Screen - Test Device Lot number: [id number] Expiration date: 12/17/21 - Control Is test valid?: Yes - Results Drug screen NEGATIVE: Yes Inpatient Rehab Admission - Rehab Decision to Admit Inpatient rehab admission?: No
[2020-06-15] MEDS ORDERED: ACETAMINOPHEN 325 MG TABLET (FP) PO PRN (10:00)
[2020-06-15] MEDS ORDERED: MAGNESIUM HYDROX 2400MG/30ML ORAL SUSPENSION 30 ML CUP PO PRN (10:00)
[2020-06-15] MEDS ORDERED: hydrOXYzine PAMOATE 25 MG CAPSULE (FP) PO SCH (10:00)
[2020-06-15] MEDS ORDERED: BISMUTH SUBSALICYLATE 262 MG/15 ML BTL PO PRN (10:00)
[2020-06-15] MEDS ORDERED: METHOCARBAMOL 500 MG TABLET PO PRN (10:00)
[2020-06-15] MEDS ORDERED: MENTHOL/PHENOL 1 EACH UD MM PRN (10:00)
[2020-06-15] MEDS ORDERED: chlordiazePOXIDE HCL 25 MG CAPSULE PO PRN (10:00)
[2020-06-15] MEDS ORDERED: MAG HYDROX/AL HYDROX/SIMETH 30 ML UNIT-DOSE CUP PO PRN (10:00)
[2020-06-15] MEDS ORDERED: ONDANSETRON *ODT* 4 MG TABLET SL PRN (10:00)
[2020-06-15] MEDS ORDERED: NICOTINE POLACRILEX 2 MG GUM BUC PRN (10:00)
[2020-06-15] MEDS ORDERED: MAGNESIUM CITRATE 300 ML BOTTLE PO PRN (10:00)
--- NOTE | 2020-06-15 10:07 | BHS.RME ---
Substance Use & Tx History - Substance Use History Alcohol Substance amount: one pint Frequency of use: Daily Substance route: Oral Date of Last Use: 06/15/20 Nicotine Substance amount: one pack Frequency of use: Daily Substance route: Smoking Date of Last Use: 06/15/20 - Last Treatment Date of last treatment: January 2020 Where was last treatment: Detox Physical/Psych/Mental Status - Behavior General Behavior: Decreased activity Eye Contact: Normal - Cooperativeness Cooperativeness: Cooperative - Thinking Thought Processes: Tight Thought content: Future oriented - Physical Health Problems Is patient presently having any pain?: No Does patient presently have any injuries (include location): No Does patient currently have a fever: No CIWA Nausea/Vomitin-Mild Nausea/No Vomiting Muscle Tremors: 3 Anxiety: 3 Agitation: 3 Paroxysmal Sweats: 2 Orientation: 0-Oriented Tacttile Disturbances: 0-None Auditory Disturbances: 0-None Visual Disturbances: 0-None Headache: 0-None Present CIWA-Ar Total Score: 12
[2020-06-15] MEDS: chlordiazePOXIDE HCL 25 MG CAPSULE PO SCH ×3 (11:38→22:05)
[2020-06-15] MEDS: ASPIRIN 81 MG CHEWABLE TABLETS PO SCH (11:43)
[2020-06-15] MEDS: NICOTINE 21 MG/24 HOURS TOPICAL PATCH TD SCH (11:44)
[2020-06-15] MEDS: PRENATAL VITAMINS W/ FOLIC ACID TABLET (FP) PO SCH (11:44)
[2020-06-15] MEDS: ATORVASTATIN CA 10 MG TABLET (FP) PO SCH (11:44)
[2020-06-15] MEDS ORDERED: hydrOXYzine PAMOATE 25 MG CAPSULE (FP) PO PRN (12:07)
--- NOTE | 2020-06-15 13:38 | CONSULT ---
[facility] Psychiatric Consult - Data Date of interview: 06/15/20 Admission source: Self-referred Identifying data: Ms Moran is a 60 years old female, mother of a 26 years old son, unemployed receiving SSD, domiciled rentind an apt in seeking detox treatment for alcohol Substance Abuse History: Reports history of alcohol use. Refer to addiction conselor's summary for further information Medical History: Significant for history of GERD, dyslipidemia, fibromyalgia, hypothyroidism, history of treatment for hepatits C in 1994 and arthroscopic surgery for torn meniscus right knee. Smokes cigarettes 1 ppd Psychiatric History: Patient is known for 4 previous admissions to this facility. She reports that her first psychiatric contact occured in 2003 when she was diagnosed with MDD and started on psychotropic medications. Reports receiving psychiatric treatment since. Reports that she currently sees Dr López Conway in [place] and she is prescribed Wellbutrin XL 450 mg/day, Prozac 20 mg/day and Klonopin 0.5 mg/tid prn for anxiety. Denies previous psychiatric inpatient hospitalization or suicidal attempt. At present, denies experiencing depressive symptoms, S/H ideations. However, reports sleeping poorly Physical/Sexual Abuse/Trauma History: Denies history of abuse as a child or DV relationship as an adult Mental Status Exam - Mental Status Exam Alert and Oriented to: Time, Place, Person Cognitive Function: Fair Patient Appearance: Well Groomed Mood: Hopeful, Euthymic Affect: Appropriate Patient Behavior: Cooperative Speech Pattern: Clear Voice Loudness: Normal Thought Process: Intact, Goal Oriented Thought Disorder: Not Present Hallucinations: Denies Suicidal Ideation: Denies Homicidal Ideation: Denies Insight/Judgement: Poor Sleep: Poorly Appetite: Good Muscle strength/Tone: Rigidity Gait/Station: Normal Psychiatric Findings - Problem List ([place] 1, 2,3) (1) Major depressive disorder, recurrent, moderate Current Visit: No Status: Chronic (2) Alcohol-induced sleep disorder Current Visit: No Status: Acute (3) Alcohol dependence with withdrawal Current Visit: Yes Status: Acute (4) Nicotine dependence Current Visit: Yes Status: Chronic Qualifiers: Nicotine product type: cigarettes Substance use status: uncomplicated Qualified Code(s): F17.210 - Nicotine dependence, cigarettes, uncomplicated (5) H/O fibromyalgia Current Visit: Yes Status: Chronic (6) Hypothyroidism Current Visit: Yes Status: Chronic Qualifiers: Hypothyroidism type: unspecified Qualified Code(s): E03.9 - Hypothyroidism, unspecified (7) GERD (gastroesophageal reflux disease) Current Visit: No Status: Chronic Qualifiers: Esophagitis presence: esophagitis presence not specified Qualified Code(s): K21.9 - Gastro-esophageal reflux disease without esophagitis (8) Hyperlipidemia Current Visit: No Status: Chronic Qualifiers: Hyperlipidemia type: unspecified Qualified Code(s): E78.5 - Hyperlipidemia, unspecified (9) Hepatitis C Current Visit: Yes Status: Resolved - Initial Treatment Plan Initial Treatment Plan: 1) Continue Wellbutrin XL 450 mg po daily and Prozac 20 mg po daily. 2) Continue inpatient detoxification
[2020-06-15 14:41] LABS: HEMATOCRIT 43.4 % (32.4-45.2); HEMOGLOBIN 14.9 GM/dL (10.7-15.3); MCH 34.5 pg (25.7-33.7); MCHC 34.5 g/dl (32.0-36.0); MEAN CELL VOLUME 100.1 fl (80-96); MEAN PLT VOLUME 8.7 fl (7.5-11.1); PLATELET COUNT 244 K/MM3 (134-434); RBC 4.33 M/mm3 (3.60-5.2); RDW 15.2 % (11.6-15.6); WHITE BLOOD COUNT 7.5 K/mm3 (4.0-10.0)
[2020-06-15 14:54] LABS: ALBUMIN 3.9 g/dl (3.4-5.0); BILIRUBIN,TOTAL 0.3 mg/dL (0.2-1); BLOOD UREA NITROGEN 11.3 mg/dL (7-18); CALCIUM 9.5 mg/dL (8.5-10.1); CREATININE 0.6 mg/dL (0.55-1.3); POTASSIUM 3.6 mmol/L (3.5-5.1); TOT PROT 7.3 g/dl (6.4-8.2)
[2020-06-15] MEDS: ACETAMINOPHEN 325 MG TABLET (FP) PO PRN (22:04)
[2020-06-15] MEDS: MELATONIN 5 MG TABLETS PO SCH (22:05)
[2020-06-15] MEDS: THIAMINE HCL 100 MG TABLET (FP) PO SCH (22:05)
[2020-06-15] MEDS: LIDOCAINE PATCH REMOVAL MC SCH (22:08)
[2020-06-16] MEDS: chlordiazePOXIDE HCL 25 MG CAPSULE PO SCH ×4 (07:26→22:07)
[2020-06-16] MEDS: ASPIRIN 81 MG CHEWABLE TABLETS PO SCH (10:25)
[2020-06-16] MEDS: ATORVASTATIN CA 10 MG TABLET (FP) PO SCH (10:25)
[2020-06-16] MEDS: LEVOTHYROXINE NA 112 MCG TABLET (FP) PO SCH (10:26)
[2020-06-16] MEDS: NICOTINE 21 MG/24 HOURS TOPICAL PATCH TD SCH (10:26)
[2020-06-16] MEDS: LIDOCAINE 5% TOPICAL PATCH TP PRN (10:27)
[2020-06-16] MEDS: FLUoxetine HCL 20 MG CAPSULE PO SCH (10:29)
[2020-06-16] MEDS: PRENATAL VITAMINS W/ FOLIC ACID TABLET (FP) PO SCH (10:29)
--- NOTE | 2020-06-16 11:38 | PN ---
S CIWA - CIWA Score Nausea/Vomitin-No Nausea/No Vomiting Muscle Tremors: 2 Anxiety: 2 Agitation: 3 Paroxysmal Sweats: 3 Orientation: 0-Oriented Tacttile Disturbances: 0-None Auditory Disturbances: 0-None Visual Disturbances: 0-None Headache: 0-None Present CIWA-Ar Total Score: 10 BHS Progress Note (SOAP) Subjective: sweats body aches interrupted sleep agitation Objective: 06/16/20 11:36 Vital Signs Temperature 98.0 F 06/16/20 08:57 Pulse Rate 71 06/16/20 08:57 Respiratory Rate 17 06/16/20 08:57 Blood Pressure 119/60 06/16/20 08:57 O2 Sat by Pulse Oximetry (%) 100 06/16/20 08:57 Laboratory Tests 06/15/20 06/15/20 06/15/20 10:35 10:35 10:35 WBC 7.5 RBC 4.33 Hgb 14.9 Hct 43.4 MCV 100.1 H MCH 34.5 H MCHC 34.5 RDW 15.2 Plt Count 244 D MPV 8.7 Sodium 140 Potassium 3.6 Chloride 101 Carbon Dioxide 31 Anion Gap 7 L BUN 11.3 Creatinine 0.6 Est GFR (CKD-EPI)AfAm 114.82 Est GFR (CKD-EPI)NonAf 99.07 Random Glucose 71 L Calcium 9.5 Total Bilirubin 0.3 AST 31 ALT 29 Alkaline Phosphatase 84 Total Protein 7.3 Albumin 3.9 Syphilis Serology Non-reactive COVID-19 (ELIZ) 06/15/20 13:35 WBC RBC Hgb Hct MCV MCH MCHC RDW Plt Count MPV Sodium Potassium Chloride Carbon Dioxide Anion Gap BUN Creatinine Est GFR (CKD-EPI)AfAm Est GFR (CKD-EPI)NonAf Random Glucose Calcium Total Bilirubin AST ALT Alkaline Phosphatase Total Protein Albumin Syphilis Serology COVID-19 (ELIZ) Not detected labs noted aaox3 ambulating no acute distress Assessment: 06/16/20 11:48 withdrawals Plan: continue detox
[2020-06-16] MEDS ORDERED: FLU VACCINE (FLULAVAL) PF 60 MCG/0.5 ML SYRINGE 2020-2021 IM ONE (12:00)
[2020-06-16] MEDS: THIAMINE HCL 100 MG TABLET (FP) PO SCH (22:07)
[2020-06-16] MEDS: MELATONIN 5 MG TABLETS PO SCH (22:07)
[2020-06-16] MEDS: ACETAMINOPHEN 325 MG TABLET (FP) PO PRN (22:07)
[2020-06-16] MEDS: LIDOCAINE PATCH REMOVAL MC SCH (22:58)
[2020-06-17] MEDS: chlordiazePOXIDE HCL 25 MG CAPSULE PO SCH ×4 (05:34→22:26)
[2020-06-17] MEDS: IBUPROFEN 400 MG TABLET (FP) PO PRN (05:39)
[2020-06-17] MEDS: LEVOTHYROXINE NA 112 MCG TABLET (FP) PO SCH (06:42)
[2020-06-17] MEDS: ASPIRIN 81 MG CHEWABLE TABLETS PO SCH (10:25)
[2020-06-17] MEDS: PRENATAL VITAMINS W/ FOLIC ACID TABLET (FP) PO SCH (10:26)
[2020-06-17] MEDS: NICOTINE 21 MG/24 HOURS TOPICAL PATCH TD SCH (10:26)
[2020-06-17] MEDS: FLUoxetine HCL 20 MG CAPSULE PO SCH (10:26)
[2020-06-17] MEDS: ATORVASTATIN CA 10 MG TABLET (FP) PO SCH (10:26)
--- NOTE | 2020-06-17 13:21 | PN ---
S CIWA - CIWA Score Nausea/Vomitin-No Nausea/No Vomiting Muscle Tremors: 2 Anxiety: 1-Mildly Anxious Agitation: 2 Paroxysmal Sweats: 2 Orientation: 0-Oriented Tacttile Disturbances: 0-None Auditory Disturbances: 0-None Visual Disturbances: 0-None Headache: 0-None Present CIWA-Ar Total Score: 7 BHS Progress Note (SOAP) Subjective: sweats anxiety restless Objective: 06/17/20 13:20 Vital Signs Temperature 96.8 F L 06/17/20 08:51 Pulse Rate 89 06/17/20 08:51 Respiratory Rate 18 06/17/20 08:51 Blood Pressure 135/63 06/17/20 08:51 O2 Sat by Pulse Oximetry (%) 98 06/17/20 08:51 Laboratory Tests 06/15/20 06/15/20 06/15/20 10:35 10:35 10:35 WBC 7.5 RBC 4.33 Hgb 14.9 Hct 43.4 MCV 100.1 H MCH 34.5 H MCHC 34.5 RDW 15.2 Plt Count 244 D MPV 8.7 Sodium 140 Potassium 3.6 Chloride 101 Carbon Dioxide 31 Anion Gap 7 L BUN 11.3 Creatinine 0.6 Est GFR (CKD-EPI)AfAm 114.82 Est GFR (CKD-EPI)NonAf 99.07 Random Glucose 71 L Calcium 9.5 Total Bilirubin 0.3 AST 31 ALT 29 Alkaline Phosphatase 84 Total Protein 7.3 Albumin 3.9 Syphilis Serology Non-reactive COVID-19 (ELIZ) 06/15/20 13:35 WBC RBC Hgb Hct MCV MCH MCHC RDW Plt Count MPV Sodium Potassium Chloride Carbon Dioxide Anion Gap BUN Creatinine Est GFR (CKD-EPI)AfAm Est GFR (CKD-EPI)NonAf Random Glucose Calcium Total Bilirubin AST ALT Alkaline Phosphatase Total Protein Albumin Syphilis Serology COVID-19 (ELIZ) Not detected labs noted aaox3 ambulating no acute distress Assessment: 06/17/20 13:20 withdrawals Plan: continue detox
[2020-06-17] MEDS: THIAMINE HCL 100 MG TABLET (FP) PO SCH (22:26)
[2020-06-17] MEDS: MELATONIN 5 MG TABLETS PO SCH (22:26)
[2020-06-17] MEDS: LIDOCAINE PATCH REMOVAL MC SCH (22:28)
[2020-06-18] MEDS ORDERED: chlordiazePOXIDE HCL 10 MG CAPSULE PO PRN
[2020-06-18] MEDS: LEVOTHYROXINE NA 100 MCG TABLET (FP) PO SCH (07:25)
[2020-06-18] MEDS: chlordiazePOXIDE HCL 10 MG CAPSULE PO SCH ×4 (07:25→22:27)
[2020-06-18] MEDS: NICOTINE 21 MG/24 HOURS TOPICAL PATCH TD SCH (10:21)
[2020-06-18] MEDS: ATORVASTATIN CA 10 MG TABLET (FP) PO SCH (10:21)
[2020-06-18] MEDS: FLUoxetine HCL 20 MG CAPSULE PO SCH (10:21)
[2020-06-18] MEDS: ASPIRIN 81 MG CHEWABLE TABLETS PO SCH (10:21)
[2020-06-18] MEDS: PRENATAL VITAMINS W/ FOLIC ACID TABLET (FP) PO SCH (10:21)
[2020-06-18] MEDS: LIDOCAINE 5% TOPICAL PATCH TP PRN (10:24)
--- NOTE | 2020-06-18 12:31 | PN ---
S CIWA - CIWA Score Nausea/Vomitin-No Nausea/No Vomiting Muscle Tremors: 3 Anxiety: 2 Agitation: 2 Paroxysmal Sweats: 1-Minimal Palms Moist Orientation: 0-Oriented Tacttile Disturbances: 0-None Auditory Disturbances: 0-None Visual Disturbances: 0-None Headache: 0-None Present CIWA-Ar Total Score: 8 BHS Progress Note (SOAP) Subjective: sweats tired Objective: 06/18/20 12:31 Vital Signs Temperature 96.9 F L 06/18/20 08:47 Pulse Rate 78 06/18/20 08:47 Respiratory Rate 16 06/18/20 08:47 Blood Pressure 132/63 06/18/20 08:47 O2 Sat by Pulse Oximetry (%) 97 06/18/20 08:47 Laboratory Tests 06/15/20 06/15/20 06/15/20 10:35 10:35 10:35 WBC 7.5 RBC 4.33 Hgb 14.9 Hct 43.4 MCV 100.1 H MCH 34.5 H MCHC 34.5 RDW 15.2 Plt Count 244 D MPV 8.7 Sodium 140 Potassium 3.6 Chloride 101 Carbon Dioxide 31 Anion Gap 7 L BUN 11.3 Creatinine 0.6 Est GFR (CKD-EPI)AfAm 114.82 Est GFR (CKD-EPI)NonAf 99.07 Random Glucose 71 L Calcium 9.5 Total Bilirubin 0.3 AST 31 ALT 29 Alkaline Phosphatase 84 Total Protein 7.3 Albumin 3.9 Syphilis Serology Non-reactive COVID-19 (ELIZ) 06/15/20 13:35 WBC RBC Hgb Hct MCV MCH MCHC RDW Plt Count MPV Sodium Potassium Chloride Carbon Dioxide Anion Gap BUN Creatinine Est GFR (CKD-EPI)AfAm Est GFR (CKD-EPI)NonAf Random Glucose Calcium Total Bilirubin AST ALT Alkaline Phosphatase Total Protein Albumin Syphilis Serology COVID-19 (ELIZ) Not detected aaox3 ambulating no acute distress Assessment: 06/18/20 12:31 withdrawals Plan: continue detox
[2020-06-18] MEDS: MELATONIN 5 MG TABLETS PO SCH (22:27)
[2020-06-18] MEDS: THIAMINE HCL 100 MG TABLET (FP) PO SCH (22:27)
[2020-06-18] MEDS: LIDOCAINE PATCH REMOVAL MC SCH (22:27)
[2020-06-19] MEDS: chlordiazePOXIDE HCL 10 MG CAPSULE PO SCH ×2 (05:58→17:33)
[2020-06-19] MEDS: LEVOTHYROXINE NA 100 MCG TABLET (FP) PO SCH (06:33)
[2020-06-19] MEDS: LIDOCAINE 5% TOPICAL PATCH TP PRN (10:14)
[2020-06-19] MEDS: FLUoxetine HCL 20 MG CAPSULE PO SCH (10:15)
[2020-06-19] MEDS: ASPIRIN 81 MG CHEWABLE TABLETS PO SCH (10:15)
[2020-06-19] MEDS: NICOTINE 21 MG/24 HOURS TOPICAL PATCH TD SCH (10:17)
[2020-06-19] MEDS: ATORVASTATIN CA 10 MG TABLET (FP) PO SCH (11:46)
[2020-06-19] MEDS: PRENATAL VITAMINS W/ FOLIC ACID TABLET (FP) PO SCH (11:47)
--- NOTE | 2020-06-19 14:06 | PN ---
S CIWA - CIWA Score Nausea/Vomitin-No Nausea/No Vomiting Muscle Tremors: 2 Anxiety: 1-Mildly Anxious Agitation: 1-Slight > Activity Paroxysmal Sweats: 1-Minimal Palms Moist Orientation: 0-Oriented Tacttile Disturbances: 0-None Auditory Disturbances: 0-None Visual Disturbances: 0-None Headache: 0-None Present CIWA-Ar Total Score: 5 BHS Progress Note (SOAP) Subjective: feeling fine little sweats Objective: 06/19/20 14:05 Vital Signs Temperature 97.1 F L 06/19/20 08:45 Pulse Rate 88 06/19/20 08:45 Respiratory Rate 17 06/19/20 08:45 Blood Pressure 125/68 06/19/20 08:45 O2 Sat by Pulse Oximetry (%) 100 06/19/20 08:45 aaox3 ambulating no acute distress Assessment: 06/19/20 14:05 mild withdrawals Plan: continue detox d/c in am
[2020-06-19] MEDS: IBUPROFEN 400 MG TABLET (FP) PO PRN (18:09)
[2020-06-19] MEDS: THIAMINE HCL 100 MG TABLET (FP) PO SCH (22:02)
[2020-06-19] MEDS: LIDOCAINE PATCH REMOVAL MC SCH (22:02)
[2020-06-19] MEDS: MELATONIN 5 MG TABLETS PO SCH (22:02)
[2020-06-20] MEDS ORDERED: chlordiazePOXIDE HCL 10 MG CAPSULE PO ONE (05:00)
[2020-06-20] MEDS: LEVOTHYROXINE NA 100 MCG TABLET (FP) PO SCH (06:26)
[2020-06-20 09:19] VITALS: BP 111/74; PULSE 69; TEMP 96
[2020-06-20] MEDS: ATORVASTATIN CA 10 MG TABLET (FP) PO SCH (09:51)
[2020-06-20] MEDS: PRENATAL VITAMINS W/ FOLIC ACID TABLET (FP) PO SCH (09:51)
[2020-06-20] MEDS: ASPIRIN 81 MG CHEWABLE TABLETS PO SCH (09:51)
[2020-06-20] MEDS: FLUoxetine HCL 20 MG CAPSULE PO SCH (09:51)
[2020-06-20] MEDS: NICOTINE 21 MG/24 HOURS TOPICAL PATCH TD SCH (09:52)
--- NOTE | 2020-06-20 11:32 | DS ---
[facility] Detox Discharge Summary Admission Date: 06/15/20 Discharge Date: 06/20/20 - History Present History: Alcohol Dependence Additional Comments: Patient seen and examined, alert and oriented x3, in acute respiratory distress. Full ROM, ambulatory in the unit without assistance. Skin warm to touch without lesions. Completed detox protocol, stable for discharge today. Encouraged to follow up with aftercare. Pertinent Past History: History of fibromyalgia, hypothyroidism, Hep C, anxiety and alcohol use disorder. - Physical Exam Results Vital Signs: Vital Signs Temperature 96 F L 06/20/20 05:30 Pulse Rate 69 06/20/20 05:30 Respiratory Rate 18 06/20/20 05:30 Blood Pressure 111/74 06/20/20 05:30 O2 Sat by Pulse Oximetry (%) 96 06/20/20 05:30 Vital Signs 06/20/20 05:30 Temperature 96 F L Pulse Rate 69 Respiratory 18 Rate Blood Pressure 111/74 O2 Sat by Pulse 96 Oximetry (%) Laboratory Last Values WBC 7.5 K/mm3 (4.0-10.0) 06/15/20 10:35 RBC 4.33 M/mm3 (3.60-5.2) 06/15/20 10:35 Hgb 14.9 GM/dL (10.7-15.3) 06/15/20 10:35 Hct 43.4 % (32.4-45.2) 06/15/20 10:35 MCV 100.1 fl (80-96) H 06/15/20 10:35 MCH 34.5 pg (25.7-33.7) H 06/15/20 10:35 MCHC 34.5 g/dl (32.0-36.0) 06/15/20 10:35 RDW 15.2 % (11.6-15.6) 06/15/20 10:35 Plt Count 244 K/MM3 (134-434) D 06/15/20 10:35 MPV 8.7 fl (7.5-11.1) 06/15/20 10:35 Sodium 140 mmol/L (136-145) 06/15/20 10:35 Potassium 3.6 mmol/L (3.5-5.1) 06/15/20 10:35 Chloride 101 mmol/L (98-107) 06/15/20 10:35 Carbon Dioxide 31 mmol/L (21-32) 06/15/20 10:35 Anion Gap 7 MMOL/L (8-16) L 06/15/20 10:35 BUN 11.3 mg/dL (7-18) 06/15/20 10:35 Creatinine 0.6 mg/dL (0.55-1.3) 06/15/20 10:35 Est GFR (CKD-EPI)AfAm 114.82 06/15/20 10:35 Est GFR (CKD-EPI)NonAf 99.07 06/15/20 10:35 Random Glucose 71 mg/dL (74-106) L 06/15/20 10:35 Calcium 9.5 mg/dL (8.5-10.1) 06/15/20 10:35 Total Bilirubin 0.3 mg/dL (0.2-1) 06/15/20 10:35 AST 31 U/L (15-37) 06/15/20 10:35 ALT 29 U/L (13-61) 06/15/20 10:35 Alkaline Phosphatase 84 U/L (45-117) 06/15/20 10:35 Total Protein 7.3 g/dl (6.4-8.2) 06/15/20 10:35 Albumin 3.9 g/dl (3.4-5.0) 06/15/20 10:35 Syphilis Serology Non-reactive (NONREACTIVE) 06/15/20 10:35 COVID-19 (ELIZ) Not detected (Not Detected) 06/15/20 13:35 labs noted. Pertinent Admission Physical Exam Findings: withdrawal symptoms. - Treatment Hospital Course: Detox Protocol Followed, Detoxed Safely, Responded well, Discharged Condition Good - Medication Discharge Medications: Ambulatory Orders Aspirin [ASA -] 81 mg PO DAILY #30 tab.chew 02/21/14 Atorvastatin Calcium [Lipitor] 10 mg PO DAILY 02/27/20 Bupropion HCl [Wellbutrin -] 450 mg PO DAILY 02/27/20 Clonazepam [Klonopin] 1 mg PO TID PRN 02/27/20 Levothyroxine [Synthroid -] 100 mcg PO DAILY@0700 02/27/20 Fluoxetine HCl [Prozac -] 20 mg PO DAILY #30 cap 03/13/20 - Diagnosis (1) Alcohol dependence with withdrawal Status: Acute (2) H/O fibromyalgia Status: Chronic (3) Hyperlipidemia Status: Chronic Qualifiers: Hyperlipidemia type: unspecified Qualified Code(s): E78.5 - Hyperlipidemia, unspecified (4) Nicotine dependence Status: Chronic Qualifiers: Nicotine product type: cigarettes Substance use status: uncomplicated Qualified Code(s): F17.210 - Nicotine dependence, cigarettes, uncomplicated (5) Hepatitis C Status: Resolved - AMA Did Patient Leave Against Medical Advice: No
== END 2020-06-20 09:54 | disposition home or self-care (01) | DRG 897 ==
LOC: YASAS 09:01 → Y6N 09:23
PROVIDERS: ADMIT Allergy & Immunology; ATTEND Allergy & Immunology
PROC: HZ2ZZZZ Detoxification Services for Substance Abuse Treatment (ICD-10-PCS; principal; 2020-06-15)
DX: F10.230 Alcohol dependence with withdrawal, uncomplicated (principal); F33.1 Major depressive disorder, recurrent, moderate; F17.210 Nicotine dependence, cigarettes, uncomplicated; F10.282 Alcohol dependence with alcohol-induced sleep disorder; F41.9 Anxiety disorder, unspecified; E03.9 Hypothyroidism, unspecified; E78.5 Hyperlipidemia, unspecified; K21.9 Gastro-esophageal reflux disease without esophagitis; M79.7 Fibromyalgia; B18.2 Chronic viral hepatitis C; Z87.440 Personal history of urinary (tract) infections; Z88.1 Allergy status to other antibiotic agents; Z56.0 Unemployment, unspecified
CPT/HCPCS: 36415; 80053; 85027; 86780; U0003

== ENCOUNTER 2020-09-20 11:03 | Inpatient (IN) | payer OTHER ==
[2020-09-20] MEDS ORDERED: MENTHOL/PHENOL 1 EACH UD MM PRN (12:07)
[2020-09-20] MEDS ORDERED: BISMUTH SUBSALICYLATE 524 MG/30 ML UD PO PRN (12:07)
[2020-09-20] MEDS ORDERED: ACETAMINOPHEN 325 MG TABLET (FP) PO PRN ×2 (12:07)
[2020-09-20] MEDS ORDERED: MAG HYDROX/AL HYDROX/SIMETH 30 ML UNIT-DOSE CUP PO PRN (12:07)
[2020-09-20] MEDS ORDERED: LORazepam 1 MG TABLET PO PRN (12:07)
[2020-09-20] MEDS ORDERED: MAGNESIUM HYDROX 2400MG/30ML ORAL SUSPENSION 30 ML CUP PO PRN (12:07)
[2020-09-20] MEDS ORDERED: METHOCARBAMOL 500 MG TABLET PO PRN (12:07)
[2020-09-20] MEDS ORDERED: ONDANSETRON *ODT* 4 MG TABLET SL PRN (12:07)
[2020-09-20] MEDS ORDERED: NICOTINE POLACRILEX 2 MG GUM BUC PRN (12:07)
[2020-09-20] MEDS ORDERED: IBUPROFEN 400 MG TABLET (FP) PO PRN (12:07)
[2020-09-20] MEDS ORDERED: MAGNESIUM CITRATE 300 ML BOTTLE PO PRN (12:07)
[2020-09-20 12:43] VITALS: BMI 27.4
[2020-09-20] MEDS ORDERED: FLU VACCINE (FLULAVAL) PF 60 MCG/0.5 ML SYRINGE 2020-2021 IM ONE (13:44)
[2020-09-20] MEDS: hydrOXYzine PAMOATE 25 MG CAPSULE (FP) PO PRN ×2 (14:50→22:14)
[2020-09-20] MEDS: LORazepam 2 MG TABLET PO SCH ×2 (16:46→22:13)
[2020-09-20] MEDS: LIDOCAINE 5% TOPICAL PATCH TP SCH (16:47)
[2020-09-20] MEDS ORDERED: MELATONIN 5 MG TABLETS PO SCH (22:00)
[2020-09-20] MEDS: ATORVASTATIN CA 10 MG TABLET (FP) PO SCH (22:13)
[2020-09-20] MEDS: THIAMINE HCL 100 MG TABLET (FP) PO SCH (22:14)
[2020-09-20] MEDS: LIDOCAINE PATCH REMOVAL MC SCH (22:16)
[2020-09-21] MEDS: LORazepam 2 MG TABLET PO SCH ×4 (05:55→22:05)
[2020-09-21] MEDS: LEVOTHYROXINE NA 112 MCG TABLET (FP) PO SCH (07:38)
[2020-09-21] MEDS: PRENATAL VITAMINS W/ FOLIC ACID TABLET (FP) PO SCH (10:09)
[2020-09-21] MEDS: LIDOCAINE 5% TOPICAL PATCH TP SCH (10:10)
[2020-09-21] MEDS: FLUoxetine HCL 20 MG CAPSULE PO SCH (10:10)
[2020-09-21 11:01] LABS: HEMATOCRIT 40.3 % (32.4-45.2); HEMOGLOBIN 13.6 GM/dL (10.7-15.3); MCH 34.7 pg (25.7-33.7); MCHC 33.8 g/dl (32.0-36.0); MEAN CELL VOLUME 102.4 fl (80-96); MEAN PLT VOLUME 8.7 fl (7.5-11.1); PLATELET COUNT 202 K/MM3 (134-434); RBC 3.93 M/mm3 (3.60-5.2); RDW 13.9 % (11.6-15.6); WHITE BLOOD COUNT 6.1 K/mm3 (4.0-10.0)
[2020-09-21 11:04] LABS: POTASSIUM 3.5 mmol/L (3.5-5.1)
[2020-09-21 11:06] LABS: ALBUMIN 3.2 g/dl (3.4-5.0); BLOOD UREA NITROGEN 15.1 mg/dL (7-18); CALCIUM 9.1 mg/dL (8.5-10.1)
[2020-09-21 11:10] LABS: CREATININE 0.8 mg/dL (0.55-1.3)
[2020-09-21 11:11] LABS: BILIRUBIN,TOTAL 0.6 mg/dL (0.2-1); TOT PROT 6.3 g/dl (6.4-8.2)
[2020-09-21] MEDS ORDERED: LOPERAMIDE HCL 2 MG CAPSULE PO PRN (18:27)
[2020-09-21] MEDS: ATORVASTATIN CA 10 MG TABLET (FP) PO SCH (22:05)
[2020-09-21] MEDS: THIAMINE HCL 100 MG TABLET (FP) PO SCH (22:06)
[2020-09-21] MEDS: LIDOCAINE PATCH REMOVAL MC SCH (22:31)
[2020-09-22] MEDS: LORazepam 1 MG TABLET PO SCH ×4 (05:20→22:10)
[2020-09-22] MEDS: LEVOTHYROXINE NA 112 MCG TABLET (FP) PO SCH (06:04)
[2020-09-22] MEDS: LIDOCAINE 5% TOPICAL PATCH TP SCH (10:08)
[2020-09-22] MEDS: FLUoxetine HCL 20 MG CAPSULE PO SCH (10:09)
[2020-09-22] MEDS: PRENATAL VITAMINS W/ FOLIC ACID TABLET (FP) PO SCH (10:09)
[2020-09-22] MEDS: hydrOXYzine PAMOATE 25 MG CAPSULE (FP) PO PRN (20:22)
[2020-09-22] MEDS: LIDOCAINE PATCH REMOVAL MC SCH (22:09)
[2020-09-22] MEDS: THIAMINE HCL 100 MG TABLET (FP) PO SCH (22:10)
[2020-09-22] MEDS: ATORVASTATIN CA 10 MG TABLET (FP) PO SCH (22:10)
[2020-09-22] MEDS: MELATONIN 5 MG TABLETS PO PRN (22:11)
[2020-09-23] MEDS ORDERED: LORazepam 0.5 MG TABLET PO PRN
[2020-09-23] MEDS: LORazepam 0.5 MG TABLET PO SCH ×4 (05:37→22:26)
[2020-09-23] MEDS: LEVOTHYROXINE NA 112 MCG TABLET (FP) PO SCH (06:24)
[2020-09-23] MEDS: FLUoxetine HCL 20 MG CAPSULE PO SCH (10:11)
[2020-09-23] MEDS: LIDOCAINE 5% TOPICAL PATCH TP SCH (10:11)
[2020-09-23] MEDS: PRENATAL VITAMINS W/ FOLIC ACID TABLET (FP) PO SCH ×2 (10:11→10:14)
[2020-09-23] MEDS ORDERED: FLU VACCINE (FLULAVAL) PF 60 MCG/0.5 ML SYRINGE 2020-2021 IM ONE (12:00)
[2020-09-23] MEDS: AMMONIUM LACTATE 12% LOTION 225 GM BOTTLE TP SCH ×2 (13:55→22:27)
[2020-09-23] MEDS: ATORVASTATIN CA 10 MG TABLET (FP) PO SCH (22:27)
[2020-09-23] MEDS: LIDOCAINE PATCH REMOVAL MC SCH (22:27)
[2020-09-23] MEDS: THIAMINE HCL 100 MG TABLET (FP) PO SCH (22:27)
[2020-09-23] MEDS: MELATONIN 5 MG TABLETS PO PRN (23:49)
[2020-09-24] MEDS ORDERED: LORazepam 0.5 MG TABLET PO ONE (05:00)
[2020-09-24] MEDS: LEVOTHYROXINE NA 112 MCG TABLET (FP) PO SCH (06:17)
[2020-09-24 08:53] VITALS: BP 114/74; PULSE 102; TEMP 96.9
== END 2020-09-24 08:51 | disposition home or self-care (01) | DRG 897 ==
LOC: YASAS 11:03 → UNDOADMIN 12:09 → Y3N 12:09
PROVIDERS: ADMIT Allergy & Immunology; ATTEND Allergy & Immunology
PROC: HZ2ZZZZ Detoxification Services for Substance Abuse Treatment (ICD-10-PCS; principal; 2020-09-20)
DX: F10.230 Alcohol dependence with withdrawal, uncomplicated (principal); F33.1 Major depressive disorder, recurrent, moderate; F17.210 Nicotine dependence, cigarettes, uncomplicated; F10.282 Alcohol dependence with alcohol-induced sleep disorder; F10.24 Alcohol dependence with alcohol-induced mood disorder; E03.9 Hypothyroidism, unspecified; E78.2 Mixed hyperlipidemia; L85.3 Xerosis cutis; M79.7 Fibromyalgia; Z86.19 Personal history of other infectious and parasitic diseases; Z88.1 Allergy status to other antibiotic agents
CPT/HCPCS: 36415; 80053; 85027; 86780; C9803; G0008; Q2036; U0003

== ENCOUNTER 2022-02-20 14:10 | Inpatient (IN) | payer BC, OTHER ==
[2022-02-20 14:46] VITALS: BMI 27.4
[2022-02-20] MEDS ORDERED: ONDANSETRON *ODT* 4 MG TABLET SL PRN (16:35)
[2022-02-20] MEDS ORDERED: ACETAMINOPHEN 325 MG TABLET (FP) PO PRN ×2 (16:35)
[2022-02-20] MEDS ORDERED: NICOTINE 10 MG CARTRIDGE (INHALER) IH PRN (16:35)
[2022-02-20] MEDS ORDERED: BENZOCAINE/MENTHOL (CHLORASEPTIC ) LOZENGE MM PRN (16:35)
[2022-02-20] MEDS ORDERED: DICYCLOMINE HCL 10 MG CAPSULE PO PRN (16:35)
[2022-02-20] MEDS ORDERED: MAG HYDROX/AL HYDROX/SIMETH 30 ML UNIT-DOSE CUP PO PRN (16:35)
[2022-02-20] MEDS ORDERED: IBUPROFEN 400 MG TABLET (FP) PO PRN (16:35)
[2022-02-20] MEDS ORDERED: LOPERAMIDE HCL 2 MG CAPSULE PO PRN (16:35)
[2022-02-20] MEDS ORDERED: MAGNESIUM CITRATE 300 ML BOTTLE PO PRN (16:35)
[2022-02-20] MEDS ORDERED: BISMUTH SUBSALICYLATE 524 MG/30 ML PO PRN (16:35)
[2022-02-20] MEDS ORDERED: MAGNESIUM HYDROX 2400MG/30ML ORAL SUSPENSION 30 ML CUP PO PRN (16:35)
[2022-02-20] MEDS ORDERED: METHOCARBAMOL 500 MG TABLET PO PRN (16:35)
[2022-02-20] MEDS: diazePAM 5 MG TABLET PO SCH ×3 (22:15→23:44)
[2022-02-20] MEDS: MELATONIN 5 MG TABLETS PO SCH (22:17)
[2022-02-20] MEDS: hydrOXYzine PAMOATE 25 MG CAPSULE (FP) PO SCH ×2 (22:17→23:37)
[2022-02-20] MEDS: THIAMINE HCL 100 MG TABLET (FP) PO SCH (22:17)
[2022-02-21] MEDS: hydrOXYzine PAMOATE 25 MG CAPSULE (FP) PO SCH ×6 (00:26→22:22)
[2022-02-21] MEDS: diazePAM 5 MG TABLET PO SCH ×4 (05:33→22:21)
[2022-02-21 10:11] LABS: HEMATOCRIT 40.8 % (32.4-45.2); HEMOGLOBIN 13.7 GM/dL (10.7-15.3); MCHC 33.6 g/dl (32.0-36.0); MEAN CELL VOLUME 101.3 fl (80-96); MEAN PLT VOLUME 8.2 fl (7.5-11.1); PLATELET COUNT 195 10^3/uL (134-434); RBC 4.03 M/mm3 (3.60-5.2); WHITE BLOOD COUNT 4.9 K/mm3 (4.0-10.0)
[2022-02-21 10:19] LABS: ALBUMIN 3.4 g/dl (3.4-5.0); BLOOD UREA NITROGEN 14.8 mg/dL (7-18); CALCIUM 9.4 mg/dL (8.5-10.1)
[2022-02-21 10:20] LABS: CREATININE 0.7 mg/dL (0.55-1.3)
[2022-02-21 10:22] LABS: BILIRUBIN,TOTAL 0.4 mg/dL (0.2-1); TOT PROT 6.4 g/dl (6.4-8.2)
[2022-02-21] MEDS: PRENATAL VITAMINS W/ FOLIC ACID TABLET (FP) PO SCH (10:33)
[2022-02-21] MEDS: NICOTINE 7 MG/24 HOURS TOPICAL PATCH TD SCH (10:35)
[2022-02-21] MEDS: FLUoxetine HCL 20 MG CAPSULE PO SCH (12:24)
[2022-02-21] MEDS: MELATONIN 5 MG TABLETS PO SCH (22:22)
[2022-02-21] MEDS: ATORVASTATIN CA 10 MG TABLET (FP) PO SCH (22:22)
[2022-02-21] MEDS: THIAMINE HCL 100 MG TABLET (FP) PO SCH (22:22)
[2022-02-22] MEDS: hydrOXYzine PAMOATE 25 MG CAPSULE (FP) PO SCH ×5 (06:22→22:11)
[2022-02-22] MEDS: diazePAM 5 MG TABLET PO SCH ×3 (06:22→22:14)
[2022-02-22] MEDS: LEVOTHYROXINE NA 100 MCG TABLET (FP) PO SCH (06:22)
[2022-02-22] MEDS: diazePAM 5 MG TABLET PO PRN ×2 (10:51→17:58)
[2022-02-22] MEDS: FLUoxetine HCL 20 MG CAPSULE PO SCH (10:52)
[2022-02-22] MEDS: PRENATAL VITAMINS W/ FOLIC ACID TABLET (FP) PO SCH (10:52)
[2022-02-22] MEDS: NICOTINE 7 MG/24 HOURS TOPICAL PATCH TD SCH (10:53)
[2022-02-22] MEDS: METHYL SALICYLATE/MENTHOL OINT 30 GM TUBE TP SCH ×2 (14:05→22:11)
[2022-02-22] MEDS: MELATONIN 5 MG TABLETS PO SCH (22:11)
[2022-02-22] MEDS: ATORVASTATIN CA 10 MG TABLET (FP) PO SCH (22:11)
[2022-02-22] MEDS: THIAMINE HCL 100 MG TABLET (FP) PO SCH (22:11)
[2022-02-22] MEDS: IBUPROFEN 600 MG TABLET (FP) PO PRN (23:02)
[2022-02-23] MEDS: diazePAM 5 MG TABLET PO PRN (03:18)
[2022-02-23] MEDS: LEVOTHYROXINE NA 100 MCG TABLET (FP) PO SCH (06:15)
[2022-02-23] MEDS: hydrOXYzine PAMOATE 25 MG CAPSULE (FP) PO SCH ×5 (06:15→22:18)
[2022-02-23] MEDS: diazePAM 5 MG TABLET PO SCH ×2 (06:16→18:15)
[2022-02-23] MEDS: PRENATAL VITAMINS W/ FOLIC ACID TABLET (FP) PO SCH (10:42)
[2022-02-23] MEDS: NICOTINE 7 MG/24 HOURS TOPICAL PATCH TD SCH (10:42)
[2022-02-23] MEDS: FLUoxetine HCL 20 MG CAPSULE PO SCH (10:42)
[2022-02-23] MEDS: METHYL SALICYLATE/MENTHOL OINT 30 GM TUBE TP SCH (10:42)
[2022-02-23] MEDS: IBUPROFEN 600 MG TABLET (FP) PO PRN (18:15)
[2022-02-23] MEDS: MELATONIN 5 MG TABLETS PO SCH (22:18)
[2022-02-23] MEDS: ATORVASTATIN CA 10 MG TABLET (FP) PO SCH (22:18)
[2022-02-23] MEDS: THIAMINE HCL 100 MG TABLET (FP) PO SCH (22:18)
[2022-02-24] MEDS: METHYL SALICYLATE/MENTHOL OINT 30 GM TUBE TP SCH (01:33)
[2022-02-24] MEDS ORDERED: diazePAM 5 MG TABLET PO ONE (06:00)
[2022-02-24] MEDS: LEVOTHYROXINE NA 100 MCG TABLET (FP) PO SCH (06:33)
[2022-02-24] MEDS: hydrOXYzine PAMOATE 25 MG CAPSULE (FP) PO SCH (06:33)
[2022-02-24 07:25] VITALS: BP 123/60; PULSE 61; TEMP 96.8
== END 2022-02-24 09:26 | disposition other institution (70) | DRG 897 ==
LOC: YASAS 14:10 → Y6N 19:17
PROVIDERS: ADMIT Allergy & Immunology; ATTEND Surgery
PROC: HZ2ZZZZ Detoxification Services for Substance Abuse Treatment (ICD-10-PCS; principal; 2022-02-20)
DX: F10.230 Alcohol dependence with withdrawal, uncomplicated (principal); F33.1 Major depressive disorder, recurrent, moderate; F13.230 Sedative, hypnotic or anxiolytic dependence with withdrawal, uncomplicated; F17.210 Nicotine dependence, cigarettes, uncomplicated; F10.24 Alcohol dependence with alcohol-induced mood disorder; F34.1 Dysthymic disorder; E03.9 Hypothyroidism, unspecified; E78.5 Hyperlipidemia, unspecified; K21.9 Gastro-esophageal reflux disease without esophagitis; M79.7 Fibromyalgia; M17.11 Unilateral primary osteoarthritis, right knee; M54.50 Low back pain, unspecified; G89.29 Other chronic pain; Z88.1 Allergy status to other antibiotic agents
CPT/HCPCS: 36415; 80053; 85027; 86780; 87811; C9803-CS; U0003; U0005